=== PATIENT | male | born 1975 | race Caucasian/White ===

== ENCOUNTER 2020-01-15 16:36 | Inpatient (IN) | payer SELFPAY ==
[~2020-01-15] VITALS: Ht 177.8 cm; Wt 75.0 kg
[2020-01-15 16:49] VITALS: Ht 177.8 cm; Wt 75.0 kg
--- NOTE | 2020-01-15 17:15 | NUR ---
44 YEAR OLD MALE PRESENTS TO ETOHP WITHDRAWAL. PT STATES 4 DAYS AGO HE STOPPED DRINKING AND BEGAN FEELING NAUSEA, VOMITING AND GENERALIZED WEAKNESS. PT REPORTS DRINKING 3 BOTTLES OF WINE A DAY. DENIES SI/HI OR HX OF SEIZURES. NEURO INTACT. PT IS AWAKE, ALERT, RESP E/U. ANSWERING QUESTIONS APPROPRIATELY, CALM AND COOPERATIVE. ON FULL CM, PULSE OX AND IN FULL VIEW OF NURSES STATION.
[2020-01-15 17:18] LABS: BASOPHIL % 0.4 % (0-2); PLATELET COUNT 180 x10^3mcL (130-400); RED CELL DISTRIBUTION WIDTH 13.9 % (11.5-14.5)
[2020-01-15 17:47] LABS: CALCIUM 9.4 mg/dL (8.5-10.1); CARBON DIOXIDE 10.5 mmol/L (21-32); CREATININE SERUM 1.5 mg/dL (0.7-1.3); POTASSIUM SERUM 4.3 mmol/L (3.5-5.1)
[2020-01-15 17:52] LABS: ALBUMIN 4.4 g/dL (3.4-5.0); BILIRUBIN TOTAL 0.6 mg/dL (0.20-1.00); TOTAL PROTEIN, SERUM 9.2 g/dL (6.4-8.2)
--- NOTE | 2020-01-15 18:40 | NUR ---
PT MEDICATED PER MD ORDER. PT REPORTS FEELING ANXIOUS. PT IS AWAKE, ALERT, RESP E/U. LIGHTS TURNED DOWN FOR COMFORT AND DECREASED STIMULATION. SEIZURE PRECAUTIONS IN PLACE. REMAINS ON FULL CM AND PULSE OX.
--- NOTE | 2020-01-15 19:03 | NUR ---
SPOKE WITH LAMBERTO WITH PT PERMISSION: [phone] FREDRICK. PROVIDED ON PTS STATUS.
--- NOTE | 2020-01-15 19:37 | NUR ---
PT RESTING IN BED TALKING TO HIS OVER THE PHONE. PT STARTED ON AN INSULIN DRIP AT 4UNITS/HR FOR A BG OF 303. PT TACHY AT 117 ALL OTHER VITALS ARE WNL. PT HAS NO COMPLAINTS AT THIS TIME. NO ACUTE DISTRESS NOTED.
--- NOTE | 2020-01-15 19:53 | NUR ---
ATTEMPTED TO GIVE REPORT ON PT TO JANES FONSECA, HOWEVER ICU REPORT HE IS BUSY IN ANOTHER PTS ROOM AT THIS TIME.
--- NOTE | 2020-01-15 20:26 | NUR ---
ATTEMPTED TO CALL REPORT AGAIN ICU NURSE UNAVAILABLE AT THIS TIME.
--- NOTE | 2020-01-15 20:30 | NUR ---
INSULIN DRIP REDUCED TO 2UNITS/HR FOR A BG OF 249.
--- NOTE | 2020-01-15 20:37 | NUR ---
REPORT GIVEN TO JANES FONSECA TO [facility] OF PT.
--- NOTE | 2020-01-15 20:50 | NUR ---
PT ARRIVED FROM ED WITH A GUERTRACY ACCOMPANIED BY JERZY FONSECA. PT AOX4. PT ON ROOM AIR. PT BREATHING E/U. PULSES ARE MODERATE BUE AND BLE. O2 SAT AT 100% ON ROOM AIR. HR SHOWING SINUS TACHY. SKIN INTACT. PERIPHERAL IV TO RAC AND LAC. INSULIN INFUSING AT 2U/HR. PT VOIDS FREELY. PT NPO. BOWEL SOUDNS ACTIVE X4Q.
--- NOTE | 2020-01-15 20:55 | NUR ---
PARISH FONSECA CHANGE THE INSULIN DRIP TO 0.1UNITS/KG/HR PER DKA PROTOCOL
[2020-01-15 20:59] VITALS: BP 142/86
[2020-01-15 22:00] LABS: HDL CHOLESTEROL 39 mg/dL (40-60)
[2020-01-15 22:02] LABS: CHOLESTEROL 428 mg/dL (<200); TRIGLYCERIDES 572 mg/dL (<150)
--- NOTE | 2020-01-15 22:19 | NUR ---
CALLED DR. LI TO UPDATE REGARDING BLOOD SUGAR OF 184. DR. LI WILL PUT IN NEW ORDER
--- NOTE | 2020-01-15 22:26 | NUR ---
TITRATED INSULIN DRIP TO 0.05U/KG/HR PER DKA PROTOCOL.
[2020-01-15 23:00] VITALS: BP 116/63; BP 133/74
[2020-01-15 23:30] LABS: UA SPECIFIC GRAVITY >=1.030 (1.005-1.035); microscopic required? YES; urine erythrocyte 2+ (NEGATIVE)
[2020-01-15 23:46] LABS: AMPHETAMINE QUAL UR NONE DETECTED (See below)
--- NOTE | 2020-01-16 01:22 | NUR ---
BS OF 211. TITRATED D5/0.45NS TO 150ML/HR
[2020-01-16 01:33] LABS: CALCIUM 8.1 mg/dL (8.5-10.1); CARBON DIOXIDE 12.7 mmol/L (21-32); CHLORIDE SERUM 108 mmol/L (98-107); CREATININE SERUM 1.2 mg/dL (0.7-1.3); GFR1 > 60 mL/min; GLUCOSE SERUM 208 mg/dL (74-106); MAGNESIUM 2.6 mg/dL (1.8-2.4); PHOSPHOROUS 1.2 mg/dL (2.5-4.9); POTASSIUM SERUM 3.5 mmol/L (3.5-5.1); SODIUM SERUM 142 mmol/L (136-145)
[2020-01-16 03:10] VITALS: BP 119/70
--- NOTE | 2020-01-16 05:23 | NUR ---
BS: 207. TITRATED D5/0.45NS TO 80ML/HR
[2020-01-16 06:19] LABS: CALCIUM 8.4 mg/dL (8.5-10.1); CARBON DIOXIDE 18.8 mmol/L (21-32); CHLORIDE SERUM 108 mmol/L (98-107); CREATININE SERUM 1.2 mg/dL (0.7-1.3); GFR1 > 60 mL/min; GLUCOSE SERUM 175 mg/dL (74-106); MAGNESIUM 2.7 mg/dL (1.8-2.4); PHOSPHOROUS 1.2 mg/dL (2.5-4.9); POTASSIUM SERUM 3.3 mmol/L (3.5-5.1); SODIUM SERUM 141 mmol/L (136-145)
--- NOTE | 2020-01-16 06:36 | NUR ---
CALLED THE RESIDENT TO UPDATE REGARDING LAB RESULT
--- NOTE | 2020-01-16 07:16 | NUR ---
DR. LAWSON AT BEDSIDE. DR. LAWSON ORDER NEW IV FOR KPHOS. 15MM IV X2
--- NOTE | 2020-01-16 07:21 | NUR ---
GAVE REPORT TO KELLY FONSECA. QUESTIONS ANSWERED AND ENDORSED CARE
--- NOTE | 2020-01-16 07:40 | NUR ---
RECEIVED PT'S REPORT. PT IS AA/OX 4, VERBALLY COMMUNICATE APPROPRIATELY. PT IS ON INSULIN DRIP AT 0.5/KG/H. IVF D5 1/2 NS IS INFUSING AT 150ML/HR. WILL CONTINUE PT'S CARE.
[2020-01-16 07:45] VITALS: BP 128/74
[2020-01-16 10:56] LABS: CALCIUM 8.2 mg/dL (8.5-10.1); CARBON DIOXIDE 18.1 mmol/L (21-32); CHLORIDE SERUM 105 mmol/L (98-107); CREATININE SERUM 1.2 mg/dL (0.7-1.3); GFR1 > 60 mL/min; GLUCOSE SERUM 287 mg/dL (74-106); MAGNESIUM 2.4 mg/dL (1.8-2.4); PHOSPHOROUS 1.2 mg/dL (2.5-4.9); POTASSIUM SERUM 3.1 mmol/L (3.5-5.1); SODIUM SERUM 137 mmol/L (136-145)
[2020-01-16 11:19] LABS: BASOPHIL % 0.2 % (0-2); PLATELET COUNT 134 x10^3mcL (130-400); RED CELL DISTRIBUTION WIDTH 13.9 % (11.5-14.5)
[2020-01-16 12:02] VITALS: BP 125/76
[2020-01-16 13:35] LABS: CALCIUM 8.1 mg/dL (8.5-10.1); CARBON DIOXIDE 16.2 mmol/L (21-32); CHLORIDE SERUM 103 mmol/L (98-107); GFR1 > 60 mL/min; GLUCOSE SERUM 293 mg/dL (74-106); MAGNESIUM 2.4 mg/dL (1.8-2.4); PHOSPHOROUS 2.1 mg/dL (2.5-4.9); POTASSIUM SERUM 3.2 mmol/L (3.5-5.1); SODIUM SERUM 137 mmol/L (136-145)
--- NOTE | 2020-01-16 15:07 | NUR ---
PT COMPLAIN OF ANXIOUS, ATIVAN 0.5 MG IVP GIVEN PER PRN ORDER.
[2020-01-16 15:55] VITALS: BP 126/83
[2020-01-16 15:56] LABS: MAGNESIUM 2.3 mg/dL (1.8-2.4); PHOSPHOROUS 2.4 mg/dL (2.5-4.9)
[2020-01-16 16:25] LABS: CARBON DIOXIDE 17.7 mmol/L (21-32); CHLORIDE SERUM 104 mmol/L (98-107); GFR1 > 60 mL/min; GLUCOSE SERUM 309 mg/dL (74-106); POTASSIUM SERUM 3.1 mmol/L (3.5-5.1); SODIUM SERUM 136 mmol/L (136-145)
--- NOTE | 2020-01-16 17:46 | NUR ---
PT'S VAN [phone] CALLED. PT'S STATUS UPDATED.
--- NOTE | 2020-01-16 18:50 | NUR ---
@ 1600 PT'S GAP 14.3. NEXT BMP AT 2000. [facility]. 1500ML URINE OUTPUT THROUGH SHIFT. WILL ENDOSE PT'S CARE TO ONCOMING NURSE.
[2020-01-16 19:25] VITALS: BP 133/85
--- NOTE | 2020-01-16 19:25 | NUR ---
RECEIVED CHANGE OF SHIFT REPORT FROM KELLY FONSECA. PT AOX4. PT ON ROOM AIR. PT SHOWING NSR ON CONTINUOUS SALVAGE REPAIRER. SKIN INTACT. PT ON FULL LIQUID DIET. RAC AND LAC PERIPHERAL IV INTACT, PATENT, DRESSING CDI. INSULIN INFUSING AT 0.05U/KG/HR AND D5/0.45 INUFUSING AT 150ML/HR. PT VOIDS FREELY. PT ABLE TO AMBULATE SELF.
[2020-01-16 20:52] LABS: CALCIUM 8.2 mg/dL (8.5-10.1); CARBON DIOXIDE 20.9 mmol/L (21-32); CHLORIDE SERUM 102 mmol/L (98-107); CREATININE SERUM 1.1 mg/dL (0.7-1.3); GFR1 > 60 mL/min; GLUCOSE SERUM 326 mg/dL (74-106); POTASSIUM SERUM 3.2 mmol/L (3.5-5.1); SODIUM SERUM 136 mmol/L (136-145)
[2020-01-16 23:15] VITALS: BP 130/82
[2020-01-17 02:17] LABS: CALCIUM 8.3 mg/dL (8.5-10.1); CARBON DIOXIDE 23.5 mmol/L (21-32); CHLORIDE SERUM 107 mmol/L (98-107); CREATININE SERUM 0.9 mg/dL (0.7-1.3); GFR1 > 60 mL/min; GLUCOSE SERUM 175 mg/dL (74-106); SODIUM SERUM 141 mmol/L (136-145)
[2020-01-17 02:36] LABS: POTASSIUM SERUM 2.7 mmol/L (3.5-5.1)
--- NOTE | 2020-01-17 02:36 | NUR ---
CALLED DR. DUMONT TO UPDATE REGARDING POTASSIUM LEVEL OF 2.7. DR. DUMONT WILL PLACED NEW ORDER
--- NOTE | 2020-01-17 02:40 | NUR ---
CALLED PHARMACY TO VERIFY THE POTASSIUM ORDER.
[2020-01-17 03:05] VITALS: BP 124/85
--- NOTE | 2020-01-17 03:08 | NUR ---
CALLED PHARMACY AGAIN TO VERIFY THE MEDICATION FOR POTASSIUM. PHARMACY STATES THAT THEY WILL VERIFY IT
--- NOTE | 2020-01-17 03:29 | NUR ---
CALLED PHARMACY AGAIN TO ASK IF THEY CAN VERIFY THE POTASSIUM ORDER. PHARMACY STATES THEY WILL VERIFY.
--- NOTE | 2020-01-17 03:35 | NUR ---
CALLED DR. WYNN TO CLARIFY REGARDING POTSSIUM ORDER. DR. WYNN STATES THAT HE WILL D/C THE IV POTASSIUM AND JUST TO GIVE PO 40MEQ POTASSIUM
--- NOTE | 2020-01-17 04:55 | NUR ---
DR. MOREJON AT BEDSIDE. GAVE NURSING UPDATE
[2020-01-17 05:08] LABS: BASOPHIL % 0.2 % (0-2); RED CELL DISTRIBUTION WIDTH 13.7 % (11.5-14.5)
[2020-01-17 05:09] LABS: PLATELET COUNT 124 x10^3mcL (130-400)
[2020-01-17 06:04] LABS: CALCIUM 8.4 mg/dL (8.5-10.1); CHLORIDE SERUM 106 mmol/L (98-107); CREATININE SERUM 0.9 mg/dL (0.7-1.3); GFR1 > 60 mL/min; GLUCOSE SERUM 195 mg/dL (74-106); SODIUM SERUM 141 mmol/L (136-145)
[2020-01-17 06:06] LABS: POTASSIUM SERUM 2.6 mmol/L (3.5-5.1)
--- NOTE | 2020-01-17 07:24 | NUR ---
GIVE CHANGE OF SHIFT REPORT TO KELLY FONSECA.
--- NOTE | 2020-01-17 07:30 | NUR ---
RECEIVED REPORT FROM ELEMENTARY TUTOR RN DENISSE, PT. RESTING IN BED, CURRETLY ON INSULIN DRIP WELL D5/.45%NS, PT, GIVEN BREAKFAT, WILL RESUME PT. CARE
[2020-01-17 09:00] VITALS: BP 115/73
[2020-01-17 09:22] LABS: CALCIUM 8.3 mg/dL (8.5-10.1); CARBON DIOXIDE 19.3 mmol/L (21-32); CHLORIDE SERUM 104 mmol/L (98-107); CREATININE SERUM 0.8 mg/dL (0.7-1.3); GFR1 > 60 mL/min; GLUCOSE SERUM 235 mg/dL (74-106); SODIUM SERUM 139 mmol/L (136-145)
--- NOTE | 2020-01-17 09:43 | NUR ---
PT'S K 2.9, PAGED DR. MOREJON. WAITING FOR ORDER.
[2020-01-17 10:43] LABS: MAGNESIUM 2.6 mg/dL (1.8-2.4); PHOSPHOROUS 2.2 mg/dL (2.5-4.9)
--- NOTE | 2020-01-17 11:30 | NUR ---
MD. MADDOX ASSESSED PT BEDSIDE. MADE HIM AWARE PT'S GLUCOSE IS GREATER THAN 200 IN THE PAST A FEW HOURS. PER DR. MADDOX, INCREASE PT'S INSULIN DRIP FROM 0.1U/KG/HR UNTIL PT'S GLUCOSE DECREASE BETWEEN 150 AND 200 AND CONTINUE D5 1/2 NS INFUSING AT 100ML/HR.
[2020-01-17 12:00] VITALS: BP 122/80
[2020-01-17 12:54] LABS: CARBON DIOXIDE 20.7 mmol/L (21-32); CHLORIDE SERUM 104 mmol/L (98-107); CREATININE SERUM 0.8 mg/dL (0.7-1.3); GFR1 > 60 mL/min; GLUCOSE SERUM 303 mg/dL (74-106); SODIUM SERUM 138 mmol/L (136-145)
[2020-01-17 12:56] LABS: POTASSIUM SERUM 2.7 mmol/L (3.5-5.1)
--- NOTE | 2020-01-17 14:03 | NUR ---
POTASSIUM 40MEQ PO GIVEN FOR PT'S K 2.9.
--- NOTE | 2020-01-17 14:25 | NUR ---
PT GETTING TIRED ON CPAP WITH RR 32. RT SWITCH PT BACK TO AC MODE: FIO2 30%, VT 450, RR 14, PEEP 5.
--- NOTE | 2020-01-17 15:00 | NUR ---
BLOOD NOTED ON IV SITE, IV RAC D/C'ED. NEW IV 20 G INSERTED LEFT WRIST, SITE INTACT, IV PATENT
[2020-01-17 16:00] VITALS: BP 110/79
[2020-01-17 16:33] LABS: CALCIUM 8.5 mg/dL (8.5-10.1); CARBON DIOXIDE 24.7 mmol/L (21-32); CHLORIDE SERUM 105 mmol/L (98-107); GFR1 > 60 mL/min; GLUCOSE SERUM 263 mg/dL (74-106); POTASSIUM SERUM 3.3 mmol/L (3.5-5.1); SODIUM SERUM 141 mmol/L (136-145)
--- NOTE | 2020-01-17 17:24 | NUR ---
PT. BLOOD GLUCOSE AT 187 INSULIN TITRATED DOWN TO 0.05 IU/KG/HR FROM 0.1 IU/KG/HR
[2020-01-17 18:22] VITALS: BP 113/83
[2020-01-17 19:30] VITALS: BP 112/78
--- NOTE | 2020-01-17 19:30 | NUR ---
PT REPORT RECEIVED BY PRODUCTION LINE OPERATOR KELLY. PT IS RESTING COMFORTABLY IN BED AND IS AWAKE, ALERT AND ORIENTED X 4. PT FOLLOWS COMMANDS AND IS ABLE TO MAKE NEEDS KNOWN VERBALLY. PT IS ON RA O2 SAT 98% RR: 16 PT DENIES SOB. LTA. PT DENIES CHEST PAIN. NBP: 112/78 MAP: 88 HR: 97 SR. AT THIS TIME 0.45 NS 50 ML/HR INFUSING VIA RUE WITH INSULIN IV GTT 0.05 U/KG/HR IV GTT. PT HAS LAC IV CATH SITE CDI. SKIN INTACT. PT TOLERATING CCHO PO DIET. PT DENIES N/V. PT DENIES ABDOMINAL PAIN. PT VOIDS INDEPEDENTLY WITH NO COMPLICATIONS AND ABLE TO REPOSITION HIMSELF IN BED Q 2H. CALL LIGHT AT PT BEDSIDE. PT WATCHING TV. WILL CONTINUE TO MONITOR PT. AWAITING FOR 1999 LAB DRAW FOR RE-EVAL OF ANION GAP. FIRST ANION GAP AT 1600 CLOSED ON REPORT.
--- NOTE | 2020-01-17 20:00 | NUR ---
PT BS: 257. PT SWITCHED TO 0.9 NS 200 ML/HR IVF AND INSULIN IV GTT AT 0.10U/KG/HR IV GTT VIA RUE IV CATH AT THIS TIME. PT IS UNCHANGED FROM PREVIOUS EXAM. NO ACUTE DISTRESS. CALL LIGHT AT PT BEDSIDE.
[2020-01-17 21:04] LABS: CARBON DIOXIDE 24.2 mmol/L (21-32); CHLORIDE SERUM 102 mmol/L (98-107); CREATININE SERUM 0.9 mg/dL (0.7-1.3); GFR1 > 60 mL/min; GLUCOSE SERUM 255 mg/dL (74-106); POTASSIUM SERUM 3.4 mmol/L (3.5-5.1); SODIUM SERUM 137 mmol/L (136-145)
--- NOTE | 2020-01-17 21:30 | NUR ---
PT 2ND ANION GAP: 11.8. ATTENDING RESIDENT MADE AWARE. INSULIN IV GTT AND DKA FLUID PROTOCOL TO BE STOPPED AND PT PUT ON A INSULIN SLIDING SCALE WITH ACCUCHECKS Q5H AND CONTINUE CCHO PO DIET. PT IS RESTING COMFORTABLY IN BED. CALM AND COOPERATIVE. VSS O2 SAT 98% RA RR: 20 SINUS RHYTHM. PT DENIES PAIN. WILL CONTINUE TO MONITOR PT.
--- NOTE | 2020-01-17 23:49 | NUR ---
PT IS RESTING COMFORTABLY IN BED AND IS A&OX4. PT ABOUT TO AMBULATE IN ROOM WITH STEADY GAIT. HAS ACTIVE ROM X4. PT ABLE TO MAKE NEEDS KNOWN. PT DENIES ANY DISTRESS AT THIS TIME. NBP: 116/75 MAP:83 HR: 84 RR: 22 O2 SAT 97% WHILE ON RA. AWAITING BED AVAILABILITY FOR PT TRANSFER TO [facility].
--- NOTE | 2020-01-18 03:30 | NUR ---
PT RESTING COMFORTABLY IN BED WITH NO ACUTE DISTRESS. O2 SAT 98% WHILE ON RA. PT DENIES SOB. PT DENIES CHEST PAIN. PT ABLE TO MAKE NEEDS KNOWN AND FOLLOW COMMANDS. PT RESTLESS WHEN AWAKENED D/T NOT BEING ABLE TO HAVE GOOD SLEEP FOR 2 DAYS. PT HR: 83 IN SINUS RHYTHM. RR: 16. NBP; 96/71 MAP: 79. CALL LIGHT AT PT BEDSIDE. PT UPDATED ON PLANS OF CARE. AWAITING FOR BED AVAILABILITY FOR PT TRANSFER.
[2020-01-18 06:38] LABS: CALCIUM 8.8 mg/dL (8.5-10.1); CARBON DIOXIDE 22.2 mmol/L (21-32); CHLORIDE SERUM 106 mmol/L (98-107); CREATININE SERUM 0.7 mg/dL (0.7-1.3); GFR1 > 60 mL/min; GLUCOSE SERUM 218 mg/dL (74-106); POTASSIUM SERUM 3.6 mmol/L (3.5-5.1); SODIUM SERUM 142 mmol/L (136-145)
[2020-01-18 09:00] VITALS: BP 118/83
[2020-01-18] MEDS ORDERED: LANTI SQ (11:10)
[2020-01-18 11:25] VITALS: BP 112/80
--- NOTE | 2020-01-18 13:00 | NUR ---
DR. MOREJON AT BEDSIDE GIVING DISCHARGE INSTRUCTIONS TO PT. PT. ABLE TO GIVE RETURN DEMONSTRATION ON GLUCOCHECK. DISCHARGE INSTRUCTION GIVEN TO PT. AT [facility] WHEN SHE CALLED WITH RETURN DEMOSTRATION. PT. DISCHARGED ON WHEELCHAIR
== END 2020-01-18 14:47 | disposition home or self-care (01) | DRG 639 ==
LOC: ED 16:36 → IC 19:06
PROVIDERS: Emergency Medicine; Internal Medicine; ADMIT Family Medicine; ATTEND Family Medicine
DX: E11.10 Type 2 diabetes mellitus with ketoacidosis without coma (principal); F41.9 Anxiety disorder, unspecified; R74.0 Nonspecific elevation of levels of transaminase and lactic acid dehydrogenase [LDH]; E78.5 Hyperlipidemia, unspecified; E87.6 Hypokalemia; E83.39 Other disorders of phosphorus metabolism; Z91.19 Patient's noncompliance with other medical treatment and regimen
CPT/HCPCS: 36600; 82962; G0378; G0480; J1644; J1815; J2060; J3480; J3490; J7030; Q0092